=== PATIENT | male | born 1940 | race African-American/Black ===

== ENCOUNTER 2022-04-12 01:39 | Emergency (ER) | payer MEDICARE, BC | END 2022-04-12 03:02 | disposition home or self-care (01) | LOC: CSHERS 01:39 | DX: N48.1 Balanitis (principal); I10 Essential (primary) hypertension; E78.5 Hyperlipidemia, unspecified; Z79.82 Long term (current) use of aspirin; Z79.899 Other long term (current) drug therapy | CPT/HCPCS: 99283 ==

== ENCOUNTER 2024-06-21 16:28 | Inpatient (IN) | payer MEDICARE ==
[2024-06-21] MEDS ORDERED: Aspirin Chewable 81 MG TAB ONE (16:57)
[2024-06-21 17:28] LABS: #Eosinophils 0.13 10x3/uL (0.0-0.5); #Monocytes 0.44 10x3/uL (0.0-1.1); #Neutrophils 1.48 10x3/uL (1.5-8.4); %Lymphocytes 36.6 % (18.0-47.0); %Monocytes 13.5 % (0.0-10.0); %Neutrophils 45.6 % (40.0-75.0); Hematocrit 35.8 % (38.8-50.0); Hemoglobin 11.1 g/dL (13.5-17.5); Mean Corpuscular Hemoglobin 27.2 pg (27.0-33.0); Mean Corpuscular Volume 87.7 fL (81.2-95.1); Mean Platelet Volume 9.1 fL (7.4-10.4); Platelet Count 176 10x3/uL (150-450); RBC Distribution Width 14.9 % (11.5-14.5); Red Blood Cell (RBC) Count 4.08 10x6/uL (4.32-5.72); White Blood Cell (WBC) Count 3.3 10x3/uL (3.5-10.5)
[2024-06-21 17:42] LABS: ALT (SGPT) 15 U/L (8-55); AST (SGOT) 22 U/L (5-34); Albumin 3.9 g/dL (3.4-4.8); Alkaline Phosphatase 56 U/L (40-110); Anion Gap 13 mmol/L (10-20); BUN (Urea Nitrogen) 20 mg/dL (8.4-25.7); Bilirubin, Total 0.3 mg/dL (0.2-1.2); Calc. Creatinine Clearance 0 mL/min (70-130); Calcium 9.2 mg/dL (7.8-10.44); Carbon Dioxide 24 mmol/L (23-31); Chloride 109 mmol/L (98-107); Estimated GFR 41; Globulin 3.3 g/dL (2.4-3.5); Glucose 179 mg/dL (83-110); Potassium 4.6 mmol/L (3.5-5.1); Protein, Total 7.2 g/dL (5.8-8.1); Sodium 141 mmol/L (136-145)
[2024-06-21 17:50] LABS: Troponin I Less than 0.010 ng/mL (< 0.028)
[2024-06-21] MEDS ORDERED: Nitroglycerin 0.4 MG TAB (25 Tab Bottle) SL PRN (19:40)
[2024-06-21 20:46] LABS: Troponin I 0.011 ng/mL (< 0.028)
[2024-06-21 22:48] VITALS: BMI 24.2
[2024-06-21] MEDS: Rosuvastatin 20 MG TAB PO SCH (23:43)
[2024-06-21] MEDS: Metoprolol Tartrate 50 MG TAB PO SCH (23:44)
[2024-06-21] MEDS: Sodium Chloride 0.9% 1,000 ML IV SCH (23:46)
[2024-06-22 04:20] LABS: #Basophils 0.01 10x3/uL (0.0-0.2); #Eosinophils 0.13 10x3/uL (0.0-0.5); #Monocytes 0.55 10x3/uL (0.0-1.1); #Neutrophils 1.28 10x3/uL (1.5-8.4); %Basophils 0.3 % (0.0-2.0); %Eosinophils 4.1 % (0.0-6.0); %Lymphocytes 38.1 % (18.0-47.0); %Monocytes 17.2 % (0.0-10.0); Hemoglobin 11.1 g/dL (13.5-17.5); Mean Corpuscular HGB CONC 32.6 g/dL (32.0-36.0); Mean Corpuscular Hemoglobin 28.4 pg (27.0-33.0); Mean Platelet Volume 8.7 fL (7.4-10.4); Platelet Count 150 10x3/uL (150-450); RBC Distribution Width 14.6 % (11.5-14.5); Red Blood Cell (RBC) Count 3.91 10x6/uL (4.32-5.72); White Blood Cell (WBC) Count 3.2 10x3/uL (3.5-10.5)
[2024-06-22 04:38] LABS: Anion Gap 13 mmol/L (10-20); BUN (Urea Nitrogen) 16 mg/dL (8.4-25.7); Calc. Creatinine Clearance 58 mL/min (70-130); Calcium 8.9 mg/dL (7.8-10.44); Carbon Dioxide 21 mmol/L (23-31); Cardiac Risk 3.5 (Less than 4.5); Chloride 111 mmol/L (98-107); Cholesterol 163 mg/dl (< 200 Desired); Estimated GFR 66; Glucose 91 mg/dL (83-110); HDL Cholesterol 46 mg/dL (>60 Neg Risk); LDL Cholesterol, Calculated 100 mg/dL; Potassium 4.4 mmol/L (3.5-5.1); Sodium 141 mmol/L (136-145); Triglycerides 85 mg/dL (Less than 150)
[2024-06-22] MEDS: Hydrochlorothiazide 25 MG TAB PO SCH (10:17)
[2024-06-22] MEDS: Enoxaparin 40 MG (0.4 mL) SYRINGE SC SCH (10:17)
[2024-06-22] MEDS: Aspirin 81 mg Enteric Coated Tablet PO SCH (10:18)
[2024-06-22] MEDS: Clopidogrel Bisulfate 75 MG TAB PO SCH (10:18)
[2024-06-22] MEDS: Lisinopril 20 MG TAB PO SCH ×2 (10:19→21:49)
[2024-06-22] MEDS: Metoprolol Tartrate 50 MG TAB PO SCH (10:19)
[2024-06-22] MEDS: Magnesium 2 GM/50 ML(in water) 2 GM in Premix 1 BAG IVPB SCH (12:19)
[2024-06-22] MEDS: Isosorbide Mononitrate 30 MG ER.TAB PO SCH (12:19)
[2024-06-22] MEDS: Tamsulosin HCl 0.4 MG CAP PO SCH (12:19)
[2024-06-22 12:46] LABS: Hemoglobin A1c 6.1 % (4.0-6.0)
[2024-06-22] MEDS: Rosuvastatin 20 MG TAB PO SCH (21:49)
[2024-06-23] MEDS: Amlodipine 5 MG TAB PO SCH (10:20)
[2024-06-23] MEDS: Isosorbide Mononitrate 30 MG ER.TAB PO SCH (10:20)
[2024-06-23] MEDS: Tamsulosin HCl 0.4 MG CAP PO SCH (10:21)
[2024-06-24 04:20] LABS: Hematocrit 34.1 % (38.8-50.0); Mean Corpuscular HGB CONC 32.3 g/dL (32.0-36.0); Mean Corpuscular Hemoglobin 27.8 pg (27.0-33.0); Mean Corpuscular Volume 86.3 fL (81.2-95.1); Mean Platelet Volume 8.8 fL (7.4-10.4); Platelet Count 159 10x3/uL (150-450); RBC Distribution Width 14.7 % (11.5-14.5); Red Blood Cell (RBC) Count 3.95 10x6/uL (4.32-5.72); White Blood Cell (WBC) Count 4.1 10x3/uL (3.5-10.5)
[2024-06-24 04:29] LABS: Anion Gap 13 mmol/L (10-20); BUN (Urea Nitrogen) 19 mg/dL (8.4-25.7); Calc. Creatinine Clearance 47 mL/min (70-130); Calcium 9.2 mg/dL (7.8-10.44); Carbon Dioxide 21 mmol/L (23-31); Chloride 109 mmol/L (98-107); Estimated GFR 51; Glucose 104 mg/dL (83-110); Magnesium 1.9 mg/dL (1.6-2.6); Potassium 4.1 mmol/L (3.5-5.1); Sodium 139 mmol/L (136-145)
[2024-06-24] MEDS: Metoprolol Succinate XL 25 MG ER.TAB PO SCH (08:59)
[2024-06-25 08:45] VITALS: TEMP 98.5
[2024-06-25] MEDS: Metoprolol Succinate XL 25 MG ER.TAB PO SCH (08:46)
[2024-06-25 08:47] VITALS: BP 142/83
== END 2024-06-25 09:15 | disposition home or self-care (01) | DRG 309 ==
LOC: CSHERS 16:28 → CSHERHOLD 19:07 → CSHTELE 21:23 → OBSVTOIN 06-23 09:34
PROVIDERS: ADMIT Family Medicine; ATTEND Hospitalist
DX: R00.1 Bradycardia, unspecified (principal); N17.9 Acute kidney failure, unspecified; I25.10 Atherosclerotic heart disease of native coronary artery without angina pectoris; E78.5 Hyperlipidemia, unspecified; C61 Malignant neoplasm of prostate; I12.9 Hypertensive chronic kidney disease with stage 1 through stage 4 chronic kidney disease, or unspecified chronic kidney disease; N18.2 Chronic kidney disease, stage 2 (mild); E86.0 Dehydration; E83.42 Hypomagnesemia; E11.22 Type 2 diabetes mellitus with diabetic chronic kidney disease; I25.5 Ischemic cardiomyopathy; Z79.82 Long term (current) use of aspirin; Z79.899 Other long term (current) drug therapy; Z79.02 Long term (current) use of antithrombotics/antiplatelets; Z95.5 Presence of coronary angioplasty implant and graft; Z92.3 Personal history of irradiation; Z87.891 Personal history of nicotine dependence
CPT/HCPCS: 36415; 71045; 80048; 80053; 80061; 83036; 83735; 84484; 85025; 85027; 93005; 93010; 93306; 94760; 96372; 96374; G0378; J1650; J3475; J7030